=== PATIENT | female | born 1985 | race Caucasian/White ===

== ENCOUNTER 2019-03-08 08:00 | Day surgery (SDC) | payer MEDICARE, OTHER ==
[~2019-03-08] VITALS: Ht 172.7 cm; Wt 105.4 kg
[~2019-03-08 08:00] MED LIST: ARIP2TAB3 PO; BENZ2TAB7 PO; ESCI20TA38 PO; FAMO-96 PO; LORA-444 PO; LORA1TAB PO; PALI1.5T PO; SERT100T PO
[2019-03-08 08:44] VITALS: Ht 172.7 cm; Wt 105.4 kg
[2019-03-08] MEDS ORDERED: PROPOFOL 40 ML ONE (08:58)
[2019-03-08] MEDS ORDERED: FENTAnyl 50 MCG/ML VIAL ONE (08:58)
[2019-03-08] MEDS ORDERED: LIDOCAINE 100 MG SYRINGE ONE (08:58)
--- NOTE | 2019-03-08 09:05 | PREAC ---
Date/Time of Note Date/Time of Note DATE: 03/08/19 TIME: 09:03 Anesthesia Eval and Record Evaluation Time Pre-Procedure Interview DATE: 03/08/19 TIME: 09:03 Age 33 Sex female NPO: 8 hrs Preoperative diagnosis reflux, abdominal pain, rectal bleed Planned procedure egd, colon Past Medical History Past Medical History: Includes GI: GERD, Obesity Psych: Bipolar, Other (SCHIZO) Surgery & Anesthesia Issues No known issue Meds Anticoagulation: No Beta Ann within 24 hr: No Reason Beta Ann not given: Pt. not on B-Ann Reported Medications Escitalopram Oxalate* (Escitalopram Oxalate*) 20 Mg Tablet, 20 MG PO DAILY, #30 TAB 03/08/19 Paliperidone (Invega) 1.5 Mg Tab.er.24, 1.5 MG PO DAILY, TAB 03/08/19 Lorazepam* (Lorazepam*) 1 Mg Tablet, 1 MG PO HS PRN for INSOMNIA, #30 TAB 03/08/19 Famotidine* (Pepcid*) 20 Mg Tablet, 20 MG PO BID, #60 TAB 03/08/19 Benztropine Mesylate* (Benztropine Mesylate*) 2 Mg Tablet, 2 MG PO BID, TAB 03/08/19 Discontinued Reported Medications Aripiprazole* (Abilify*) 2 Mg Tablet, 2 MG PO BID 07/07/12 Sertraline Hcl* (Zoloft*) 100 Mg Tablet, 200 MG PO DAILY 07/07/12 Lorazepam* (Ativan*) 2 Mg Tablet, 2 MG PO DAILY 07/07/12 Meds reviewed: Yes Allergies Coded Allergies: Penicillins (Verified Allergy, Unknown, 03/08/19) haloperidol (Verified Allergy, Unknown, 03/08/19) risperidone (Verified Allergy, Unknown, 03/08/19) Allergies Reviewed: Yes Labs/Studies Labs Reviewed: Reviewed by anesthesiologist test: Negative Pre-procedure Exam Airway: Adequate mouth opening, Adequate thyromental dist Mallampati: Mallampati II Teeth: Normal Lung: Normal Heart: Normal ASA Physical Status ASA physical status: 2 Emergency: None Planned Anesthetic General/MAC: MAC Planned Pain Management Parenteral pain med Pre-operative Attestations Prior to commencing anesthesia and surgery, the patient was re-evaluated, there was verification of: *The patient's identity *The results of appropriate recent lab work and preoperative vital signs *The above evaluation not changing prior to induction *Anesthetic plan, risk benefits, alternative and complications discussed with patient/family; questions answered; patient/family understands, accepts and wishes to proceed. Dwayne Langford M.D. Mar 08, 2019 09:05
[2019-03-08 09:11] VITALS: BP 122/70; PULSE 79; RESP 18
--- NOTE | 2019-03-08 09:41 | PAC ---
Date/Time of Note Date/Time of Note DATE: 03/08/19 TIME: 09:41 Post-Anesthesia Notes Post-Anesthesia Note Last documented vital signs HR 74 RR 14 BP 1114/75 T 98 Activity: WNL Respiratory function: WNL Cardiovascular function: WNL Mental status: Baseline Pain reasonably controlled: Yes Hydration appropriate: Yes Nausea/Vomiting absent: Yes Dwayne Langford M.D. Mar 08, 2019 09:41
[2019-03-08 10:02] VITALS: BP 120/61; PULSE 83; RESP 17
--- NOTE | 2019-03-09 06:29 | CONS ---
DATE OF ADMISSION: 03/08/2019 DATE OF CONSULTATION: PATIENT NAME: SOCORRO RIGGINS TYPE OF CONSULTATION: Preoperative gastroenterology. Dear Dr. Ochoa: I thank you very much for this kind referral. HISTORY OF PRESENT ILLNESS: Ms. Socorro Riggins is a 33-year-old female patient who has been referr ed to me for further evaluation of upper abdominal pain not responding to therapy. The patient also complains of chronic heartburn. She has been taking Pepcid without relief. She has been taking pizarro xicam for degenerative joint disease of the back. Appetite is good. No weight loss. No history of gallstones or liver disease. The patient also complains of diarrhea and rectal bleeding. The patien t had abdominal CT scan done and she was noted to have thickening of the wall on the left side of the colon. No past history of inflammatory bowel disease or colon neoplasm. Not a hypertensive or diab etic. No heart disease, lung problem or kidney disease. PAST MEDICAL HISTORY: The patient has got schizophrenia and anxiety disorder. SOCIAL HISTORY: The patient is a smoker. Denies alcohol abuse. FAMILY HISTORY: No family history of gastrointestinal tract neoplasm. ALLERGIES: 1. RISPERDAL. 2. HALDOL. 3. PENICILLIN. MEDICATIONS: 1. Pepcid 20 mg p.o. b.i.d. 2. Meloxicam 7.5 mg p.o. daily. 3. Atarax 25 mg p.o. t.i.d. p.r.n. for anxiety. 4. Ativan 1 mg p.o. bedtime p.r.n. 5. Lexapro 20 mg p.o. daily. 6. Invega 6 mg p.o. b.i.d. PHYSICAL EXAMINATION: VITAL SIGNS: She is 5 feet, 8 inches tall and weighs 243 pounds, BMI 37, blood pressure 124/76. HEART: Normal heart sounds. LUNGS: Clear. ABDOMEN: Soft. No masses. Normal bowel sounds. NEUROLOGIC: Normal. IMPRESSION: 1. Upper abdominal pain and chronic heartburn, not responding to therapy with Pepcid. 2. History of chronic diarrhea and rectal bleeding. 3. The patient had abdominal CT scan done and she was noted to have wall thickening on the left side of the colon. 4. She is on meloxicam for degenerative joint disease of the back. 5. The patient never had endoscopy or colonoscopy done in the past. 6. Anxiety disorder. 7. Schizophrenia. 8. Obesity. 9. The patient is a smoker. PLAN: 1. The patient was strongly advised to stop smoking. 2. Weight loss was recommended. 3. Dietary consultation was recommended. 4. Follow up with the primary MD for the management of obesity. 5. Blood pressure 124/76 and she will have followup with the primary MD. 6. Endoscopy and colonoscopy for further evaluation. 7. Because of the obesity with a short thick neck and history of schizophrenia on multiple psychothe rapeutic medications which makes it which make her resistant to narcotics, she needs monitored anesth esia care. The procedures and possible complications are well explained to the patient and the family. They und erstand and consent to the procedures. I thank you once again. With warmest personal regards, Dictated By: HUMBERTO BENNETT/HUMPHREY Conf#: [id number] DID#: [id number]
== END 2019-03-08 13:51 | disposition home or self-care (01) ==
LOC: GIL 08:00
PROVIDERS: ATTEND Internal Medicine Gastroenterology
DX: R19.7 Diarrhea, unspecified (principal); K64.8 Other hemorrhoids; K44.9 Diaphragmatic hernia without obstruction or gangrene; K21.0 Gastro-esophageal reflux disease with esophagitis; K29.50 Unspecified chronic gastritis without bleeding
CPT/HCPCS: 43239; 45378; 88305; 88312; J2001; J3010